=== PATIENT | female | born 1990 ===

== ENCOUNTER 2016-09-14 14:53 | Emergency (ER) | payer OTHER ==
[2016-09-14 15:15] VITALS: BP 122/70; PULSE 97; RESP 20; TEMP 98.7; O2SAT 100
--- NOTE | 2016-09-14 15:30 | C.PDOC ---
History Of Present Illness A 25 year old female presents to the emergency room with complaints of bilateral lower leg and foot rash for 1 month. Patient notes some itching to the rash. Patient denies any fever, chills, vomiting, shortness of breath, swelling, numbness, weakness, or any other complaints. Patient has not tried any medications and has not had a prior PMD evaluation. VIA TRANS B/L LOWER LEG AND FOOT RASH X 1 MO. +ITCH. NO DC, FEVER, OTHER ASSOC SX. NO MEDS TRIED, NO PRIOR PMD EVAL EXAM SKIN SCATTERED LESIONS B/L LOWER LEGS, FEET W HYPERPIG BASE, POSSIBLE POST TRAUMATIC. NO VESICLES, DC. NO ERYTHEMA. INTACT Time Seen by Provider: 09/14/16 15:26 Chief Complaint (Nursing): Abnormal Skin Integrity History Per: Patient History/Exam Limitations: no limitations Onset/Duration Of Symptoms: Other (1 month) Current Symptoms Are (Timing): Still Present Location Of Injury: Right: Leg, Left: Leg Quality Of Symptoms: Itching Severity: Mild Past Medical History Reviewed: Historical Data, Nursing Documentation, Vital Signs Vital Signs: Last Vital Signs Temp 98.7 F 09/14/16 15:14 Pulse 97 H 09/14/16 15:14 Resp 20 09/14/16 15:14 BP 122/70 09/14/16 15:14 Pulse Ox 100 09/14/16 16:08 Family History: States: Unknown Family Hx - Social History Hx Alcohol Use: No Hx Substance Use: No - Immunization History Hx Tetanus Toxoid Vaccination: No Hx Influenza Vaccination: No Hx Pneumococcal Vaccination: No Review Of Systems Except As Marked, All Systems Reviewed And Found Negative. Constitutional: Negative for: Fever, Chills Respiratory: Negative for: Shortness of Breath Gastrointestinal: Negative for: Vomiting Skin: Positive for: Rash (Bilateral lower leg and foot rash) Neurological: Negative for: Weakness, Numbness Physical Exam - Physical Exam Appears: Well Skin: Rash (Scattered lesions on the bilateral lower legs and feet with hyperpigmentation base. Possible post trumatic. No vesicles. No discharge. No erythema. Skin intact.) Head: Atraumatic, Tenderness Eye(s): bilateral: Normal Inspection Cardiovascular: Rhythm Regular Respiratory: Normal Breath Sounds, No Rales, No Rhonchi, No Wheezing Gastrointestinal/Abdominal: Soft, No Tenderness, No Guarding, No Rebound Extremity: Normal ROM, No Tenderness, No Pedal Edema, No Calf Tenderness, No Swelling Neurological/Psych: Oriented x3, Normal Speech, Normal Motor, Normal Sensation ED Course And Treatment O2 Sat by Pulse Oximetry: 100 Disposition Counseled Patient/Family Regarding: Diagnosis, Need For Followup, Rx Given - Disposition Referrals: [facility] [Outside] [facility] [Outside] Disposition: HOME/ ROUTINE Disposition Time: 15:27 Condition: GOOD Prescriptions: Hydrocortisone 1% Oint [Cortizone 1% Oint] 30 applic EXT BID #1 tube Instructions: Dermatitis (ED) Print Language: [place] - Clinical Impression Clinical Impression: Pruritic dermatitis - Scribe Statement The provider has reviewed the documentation as recorded by the Adali Self Provider Scribe Attestation: All medical record entries made by the Sohanibe were at my direction and personally dictated by me. I have reviewed the chart and agree that the record accurately reflects my personal performance of the history, physical exam, medical decision making, and the department course for this patient. I have also personally directed, reviewed, and agree with the discharge instructions and disposition.
== END 2016-09-14 15:40 | disposition home or self-care (01) ==
LOC: C.ER 14:53
DX: L30.8 Other specified dermatitis (principal)